=== PATIENT | male | born 1955 | race Caucasian/White ===

== ENCOUNTER → 2024-05-15 | Outpatient (CLI) | payer MEDICARE, OTHER, SELFPAY ==
[2024-05-15 08:38] LABS: Basophils # (Auto) 0.1 Thou/mm3 (0.0-0.2); Basophils % (Auto) 1 % (0-2.5); Eosinophils # (Auto) 0.5 Thou/mm3 (0.0-0.5); Eosinophils % (Auto) 6 % (0-10); Hematocrit 49.7 % (41.0-53.0); Immature Granulocytes % (Auto) 0 % (0-0); Immature Granulocytes Auto 0.02 Thou/mm3 (0.00-0.00); Lymphocytes # (Auto) 2.4 Thou/mm3 (1.0-4.8); Lymphocytes % (Auto) 29 % (10-50); Mean Corpuscular HGB Conc 34.2 g/dl (31.0-37.0); Mean Corpuscular Hemoglobin 34.2 pg (25.0-35.0); Mean Corpuscular Volume 100 fL (80-100); Monocytes # (Auto) 0.9 Thou/mm3 (0.0-0.8); Monocytes % (Auto) 11 % (0-12); Neutrophils # (Auto) 4.3 Thou/mm3 (1.8-7.7); Neutrophils % (Auto) 53 % (37-80); Nucleated Red Blood Cell % 0 /100 WBC (0); Platelet Count 277 Thou/mm3 (140-440); RDW Standard Deviation 48.4 fL (35.1-43.9); Red Blood Count 4.97 Miln/mm3 (4.50-5.90); White Blood Count 8.2 Thou/mm3 (3.8-10.6)
[2024-05-15 09:03] LABS: Alanine Aminotransferase 24 U/L (10-49); Albumin, Serum 4.7 gm/dL (3.4-4.8); Albumin/Globulin Ratio 1.9 (1.2-2.2); Alkaline Phosphatase 78 U/L (46-116); Anion Gap 9 (7-16); Aspartate Amino Transferase 17 U/L (0-34); BUN/Creatinine Ratio 14 Ratio (12-20); Bilirubin,Total 0.9 mg/dL (0.3-1.2); Blood Urea Nitrogen 13 mg/dL (9-23); Calcium 9.6 mg/dL (8.3-10.6); Calcium (Corrected) 9.6 mg/dL (8.5-10.1); Carbon Dioxide 28.2 mMol/L (20.0-31.0); Cardiac Risk Estimate 4.4 RATIO (4.0-6.7); Chloride 107 mMol/L (98-107); Cholesterol 195 mg/dL (132-200); Creatinine (Component) 0.9 mg/dL (0.6-1.3); Globulin 2.5 gm/dL (2.3-3.5); Glucose 103 mg/dL (74-106); HDL Cholesterol 44 mg/dL (40-60); LDL Cholesterol,Calculated 118 mg/dL (0-130); Osmolality,Calculated 286 (275-295); Sodium 144 mMol/L (136-145); Thyroid Stimulating Hormone 2.53 uIU/mL (0.55-4.78); Total Protein 7.2 gm/dL (5.7-8.2); Triglycerides 164 mg/dL (30-150); eGFR > 60 See Note
[2024-05-15 09:05] LABS: Collection Type, Urine Clean Catch; Squamous Epithelial Cell,Urine 0 /hpf (0-5)
[2024-05-15 09:36] LABS: Bacteria,Urine Rare; Bilirubin,Urine Negative (Negative); Blood,Urine Negative (Negative); Clarity,Urine Clear (Clear/Hazy); Color,Urine Yellow (Lt Yel-Yel); Culture Indicated,Urine Not Indicated; Glucose, Urine Negative (Negative); Hyaline Casts,Urine < 1 /hpf (0-1); Ketones,Urine Negative (Negative); Leukocyte Esterase,Urine Negative (Negative); Nitrite,Urine Negative (Negative); Protein,Urine Negative (Neg - Trace); RBC,Urine 1 /hpf (0-3); Specific Gravity,Urine 1.028 (1.001-1.035); WBC,Urine < 1 /hpf (0-5)
[2024-05-15 09:58] LABS: Creatinine MALB Rnd Ur 195 mg/dL (30-125); Microalbumin Creat Ratio 3 mg/gCrea (<30); Microalbumin, Random Urine 6 mg/L (0-300)
[2024-05-18 06:53] LABS: Fecal Globin Result NOT DETECTED (NOT DETECTED)
== END | disposition home or self-care (01) ==
LOC: COPL 07:21
PROVIDERS: PCP Family Medicine; Referring Provider Family Medicine; Visit Provider Family Medicine
DX: Z00.00 Encounter for general adult medical examination without abnormal findings (principal); I10 Essential (primary) hypertension; Z12.11 Encounter for screening for malignant neoplasm of colon; Z13.0 Encounter for screening for diseases of the blood and blood-forming organs and certain disorders involving the immune mechanism; Z13.1 Encounter for screening for diabetes mellitus; Z13.21 Encounter for screening for nutritional disorder; Z13.220 Encounter for screening for lipoid disorders; Z13.29 Encounter for screening for other suspected endocrine disorder
CPT/HCPCS: 36415; 80053; 80061; 81001; 82043; 82274; 82306; 82570; 84153; 84443; 85025; G0328

== ENCOUNTER → 2024-09-15 | Outpatient (CLI) | payer MEDICARE, OTHER, SELFPAY ==
[2024-09-15 07:41] LABS: Misc Send Out* See Sep Rpt
[2024-09-18 17:52] LABS: A. alternata (M6) IgE <0.10 kU/L; A. fumigatus (M3) Class 0; A. fumigatus (M3) IgE <0.10 kU/L; Alder (T2) Class 0; Alder (T2) IgE <0.10 kU/L; Bermuda Grass (G2) Class 0; Bermuda Grass (G2) IgE <0.10 kU/L; Birch (T3) Class 0; Birch (T3) IgE <0.10 kU/L; C. herbarum (M2) Class 0; C. herbarum (M2) IgE <0.10 kU/L; Cat Dander (e1) Class 0; Cat Dander (e1) IgE <0.10 kU/L; Cockroach (I6) IgE <0.10 kU/L; Common Pigweed (W14) IgE <0.10 kU/L; Common Ragweed (W1) Class 0; Common Ragweed (W1) IgE <0.10 kU/L; D. farinae (D2) Class 0; D. farinae (D2) IgE <0.10 kU/L; D. pteronyssinus (D1) Class 0; D. pteronyssinus (D1) IgE <0.10 kU/L; Dog Dander (E5) IgE <0.10 kU/L; Elm (T8) IgE <0.10 kU/L; Mountain Cedar (T6) Class 0; Mountain Cedar (T6) IgE <0.10 kU/L; Mouse Ur Prot (E72) IgE <0.10 kU/L; Mugwort (W6) Class 0; Mugwort (W6) IgE <0.10 kU/L; Oak White (T7) Class 0; Oak White (T7) IgE <0.10 kU/L; Olive Tree (T9) Class 0; Olive Tree (T9) IgE <0.10 kU/L; P. notatum (M1) Class 0; P. notatum (M1) IgE <0.10 kU/L; Russian Thistle (W11) Class 0; Russian Thistle (W11) IgE <0.10 kU/L; Sycamore (T11) IgE <0.10 kU/L; Timothy Grass (G6) IgE <0.10 kU/L; White Mulberry (T70) IgE <0.10 kU/L
[2024-09-19 06:56] LABS: A. alternata (M6) Class 0; Cockroach (I6) Class 0; Common Pigweed (W14) Class 0; Dog Dander (E5) Class 0; Elm (T8) Class 0; IgE, Total, Serum 14 kU/L (114 OR LESS); Mouse Ur Prot (E72) Class 0; Sycamore (T11) Class 0; Timothy Grass (G6) Class 0; White Mulberry (T70) Class 0
== END | disposition home or self-care (01) ==
LOC: COPL 07:21
PROVIDERS: PCP Family Medicine; Referring Provider Family Medicine; Visit Provider Family Medicine
DX: R21 Rash and other nonspecific skin eruption (principal); L50.9 Urticaria, unspecified; R06.00 Dyspnea, unspecified; J30.9 Allergic rhinitis, unspecified
CPT/HCPCS: 36415; 82785; 86003

== ENCOUNTER → 2024-11-20 | Outpatient (CLI) | payer MEDICARE, OTHER, SELFPAY ==
--- NOTE | 2024-11-20 15:00 | XR_ITS ---
Examination: CT chest, without intravenous contrast. Sagittal and coronal 2-D reconstructions. Exam date and time: November 20, 2024 1435 hours INDICATIONS: Diagnosis prostate carcinoma 8 years ago, chronic coughing 7 years, history pulmonary nodules CTDI:vol (mGy) 9.86 DLP: (mGycm) 133 Technique: Multiple 3.0 mm axial sections of the chest to been obtained. Bone and lung density settings are obtained. Sagittal and coronal 2-D reconstructions have been obtained. Low dose protocols were performed. One or more of the following dose reduction techniques were used; automated exposure control, adjustment of the mA and/or KV according to patient size, use of iterative reconstruction technique. Findings: No thoracic aortic aneurysm dilatation Pulmonary artery segments are not enlarged No paratracheal tracheobronchial or bronchopulmonary adenopathy 8mm pulmonary nodule superior segment right lower lobe image 193 No pneumonia or pulmonary edema No visualized liver or splenic lesion Contracted gallbladder No pancreatic mass No hydronephrosis IMPRESSION: 8mm pulmonary nodule superior segment right lower lobe, recommend 1 additional 6 month follow-up CT chest without contrast
== END | disposition home or self-care (01) ==
LOC: CCTX 14:21
PROVIDERS: PCP Family Medicine; Referring Provider Specialist; Visit Provider Specialist
DX: R91.1 Solitary pulmonary nodule (principal)
CPT/HCPCS: 71250